=== PATIENT | male | born 1985 | race Caucasian/White ===

== ENCOUNTER 2019-09-24 14:14 | Inpatient (IN) | payer MEDICAID, SELFPAY ==
[2019-09-24 14:21] VITALS: BP 137/83; PULSE 70; RESP 20; TEMP 36.4; O2SAT 100; BMI 20.8
--- NOTE | 2019-09-24 14:31 | ED_ITS ---
Entered by [id number], acting as scribe for SanjanaSoheila HPI - Psych General: Chief Complaint: Psychiatric Symptoms Stated Complaint: mhe Time Seen by Provider: 09/24/19 14:31 [facility] ED PFSH: Statuses (acute, chronic, etc) shown below reflect problem list status as previously entered and may not be historically accurate Social History Smoking and tobacco status: current every day smoker MDM - Psych MDM Narrative: Medical decision making narrative: The patient was seen and evaluated with Troy Cheek APN. Please see his note for his history, physi krista exam and medical decision-making note. The case has been reviewed with Dr. Pabon and he was agreeable to admission. Lab Data: Labs: Lab Results 09/24/19 09/24/19 09/24/19 Range/Units 15:00 15:00 15:13 WBC 6.5 (4.0-10.0) 10^3/ uL RBC 5.50 H (4.1-5.3) 10^6/u L Hgb 15.1 (11.7-16.6) g/dL Hct 46.6 (42.0-52.0) % MCV 84.7 (80-94) fL MCH 27.5 L (28.0-34.0) pg MCHC 32.4 (30.0-36.0) g/dL RDW 12.2 (12.1-15.1) % Plt Count 265 (130-400) 10^3/c mm MPV 10.2 (7.4-10.4) fL Neut % (Auto) 61.2 % Lymph % (Auto) 27.5 % [place] % (Auto) 8.9 % Eos % (Auto) 1.5 % Baso % (Auto) 0.6 % Neut # (Auto) 4.0 (1.8-7.7) 10^3/u L Lymph # (Auto) 1.8 (0.8-4.8) 10^3/u L Nome # (Auto) 0.6 (0.2-0.9) 10^3/u L Eos # (Auto) 0.1 (0.0-0.8) 10^3/u L Baso # (Auto) 0.0 (0.0-0.1) 10^3/u L Nucleated RBC % (a uto) 0 % Nucleated RBCs # 0.0 /100WBC Sodium (136-145) mmol/L Potassium (3.5-5.1) mmol/L Chloride (98-107) mmol/L Carbon Dioxide (22-29) mmol/L Anion Gap (5-19) BUN (6-20) mg/dL Creatinine (0.7-1.2) mg/dL GFR Calculation (90-130) mL/min Glucose (74-109) mg/dL Calcium (8.6-10.0) mg/Dl Total Bilirubin (0.15-1.2) mg/dL AST (0-40) U/L ALT (0-41) U/L Alkaline Phosphata se (40-130) IU/L Total Protein (6.6-8.7) g/dL Albumin (3.5-5.2) g/dL Globulin (1.3-4.6) g/dL TSH (0.27-4.20) uIU/ mL Urine Color Yellow (Yellow) Urine Appearance Clear (CLEAR) Urine pH 7 (5-7) Ur Specific Gravit y 1.015 (1.005-1.030) Urine Protein Neg (Negative) Urine Glucose (UA) 4+ H (Normal) Urine Ketones Negative (Negative) Urine Occult Blood Neg (Negative) Urine Nitrate Negative (Negative) Urine Bilirubin Neg (NEGATIVE) Urine Urobilinogen Norm (Negative) mg/dL Ur Leukocyte Veronika ase Negative (Negative) Salicylates (3-10) mg/dL Urine Opiates Scre en Negative (Negative) ng/mL Acetaminophen (10-30) ug/mL Ur Barbiturates Sc reen Negative (Negative) ng/mL Ur Phencyclidine S crn Negative (Negative) ng/mL Ur Amphetamines Sc reen Positive H (Negative) ng/mL U Benzodiazepines Scrn Negative (Negative) ng/mL Urine Cocaine Scre en Negative (Negative) ng/mL U Marijuana (THC) Screen Negative (Negative) ng/mL Ethyl Alcohol (0-10) mg/dL 09/24/19 Range/Units 15:13 WBC (4.0-10.0) 10^3/ uL RBC (4.1-5.3) 10^6/u L Hgb (11.7-16.6) g/dL Hct (42.0-52.0) % MCV (80-94) fL MCH (28.0-34.0) pg MCHC (30.0-36.0) g/dL RDW (12.1-15.1) % Plt Count (130-400) 10^3/c mm MPV (7.4-10.4) fL Neut % (Auto) % Lymph % (Auto) % Nome % (Auto) % Eos % (Auto) % Baso % (Auto) % Neut # (Auto) (1.8-7.7) 10^3/u L Lymph # (Auto) (0.8-4.8) 10^3/u L N[place] # (Auto) (0.2-0.9) 10^3/u L Eos # (Auto) (0.0-0.8) 10^3/u L Baso # (Auto) (0.0-0.1) 10^3/u L Nucleated RBC % (a uto) % Nucleated RBCs # /100WBC Sodium 134 L (136-145) mmol/L Potassium 4.2 (3.5-5.1) mmol/L Chloride 92 L (98-107) mmol/L Carbon Dioxide 34 H (22-29) mmol/L Anion Gap 12.2 (5-19) BUN 11 (6-20) mg/dL Creatinine 0.7 (0.7-1.2) mg/dL GFR Calculation 127.6 (90-130) mL/min Glucose 308 H (74-109) mg/dL Calcium 10.0 (8.6-10.0) mg/Dl Total Bilirubin 0.4 (0.15-1.2) mg/dL AST 20 (0-40) U/L ALT 38 (0-41) U/L Alkaline Phosphata se 111 (40-130) IU/L Total Protein 7.3 (6.6-8.7) g/dL Albumin 4.5 (3.5-5.2) g/dL Globulin 2.8 (1.3-4.6) g/dL TSH 1.38 (0.27-4.20) uIU/ mL Urine Color (Yellow) Urine Appearance (CLEAR) Urine pH (5-7) Ur Specific Gravit y (1.005-1.030) Urine Protein (Negative) Urine Glucose (UA) (Normal) Urine Ketones (Negative) Urine Occult Blood (Negative) Urine Nitrate (Negative) Urine Bilirubin (NEGATIVE) Urine Urobilinogen (Negative) mg/dL Ur Leukocyte Veronika ase (Negative) Salicylates < 0.3 L (3-10) mg/dL Urine Opiates Scre en (Negative) ng/mL Acetaminophen < 5.0 L (10-30) ug/mL Ur Barbiturates Sc reen (Negative) ng/mL Ur Phencyclidine S crn (Negative) ng/mL Ur Amphetamines Sc reen (Negative) ng/mL U Benzodiazepines Scrn (Negative) ng/mL Urine Cocaine Scre en (Negative) ng/mL U Marijuana (THC) Screen (Negative) ng/mL Ethyl Alcohol < 10 (0-10) mg/dL Discharge Plan Discharge Patient Disposition: Admitted As Inpatient Clinical Impression: Depression with suicidal ideation Condition: Stable Coding Level of Care Code ED Precinct Police Sergeant for Acosta Allen The documentation recorded by the willow, [id number], accurately reflects the service I personally performed and the decisions made by Sanjana hill Eli N
--- NOTE | 2019-09-24 14:40 | W.ED.PSYCH ---
HPI - Psych General: Chief Complaint: Psychiatric Symptoms Stated Complaint: mhe Time Seen by Provider: 09/24/19 14:31 History of Present Illness: HPI Narrative: Patient was referred to the ER from [facility] in [place] for concerns of suicidal thoughts. Patient has a history of substance abuse with narcotics and methamphetamines. Patient reports that he has not used narcotics in 2 years and has been using Suboxone to control those cravings. Patient does occasionally use methamphetamines. Patient reports that he has recently gone through a divorce and which is caused him to become suicidal and have increasing thoughts of harming himself. Patient is requesting placement into the stress unit. Patient has history of Diabetes Mellitus type one, he takes Levemir 22 units in morning and sliding scale throughout the day MD complaint: suicidal ideation Associated symptoms: Reports depression and suicidal ideation If self harm: admits thoughts of self harm Review of Systems General: Reports: 10 or more systems reviewed and unremarkable except in HPI and below Psych: Reports: depression and suicidal ideation PFS ED PFSH: Statuses (acute, chronic, etc) shown below reflect problem list status as previously entered and may not be historically accurate Social History Smoking and tobacco status: current every day smoker Physical Exam Const: COMMON NORMALS: no apparent distress and oriented x3 GENERAL APPEARANCE: cooperative HENMT: COMMON NORMALS: normocephalic, external ears normal, EAC's normal, TM's normal bilaterally and external nose normal HEAD & SCALP: normal to inspection and normocephalic FACE & SINUS: normal facial exam NOSE: external nose normal GENERAL EAR: hearing not grossly impaired EXTERNAL EAR: Yes external ears normal EXTERNAL AUDITORY CANAL: EAC's normal TYMPANIC MEMBRANE: TM's normal bilaterally MOUTH: oral and palatal mucosa normal THROAT: posterior oropharynx normal Eye: COMMON NORMALS: PERRL and EOMs intact bilaterally PUPIL: Yes PERRL Neck/C-Spine: COMMON NORMALS: full ROM and no lymphadenopathy Lymph: LYMPHATIC: no lymphedema noted Chest: COMMONS NORMALS: inspection of chest normal and palpation of chest normal Resp: COMMON NORMALS: normal respiratory effort and clear to auscultation bilaterally AUSCULTATION: clear to auscultation bilaterally Cardio: COMMON NORMALS: regular rate and regular rhythm RATE: regular rate RHYTHM: regular rhythm GI: COMMON NORMALS: normal to inspection, nondistended, normoactive bowel sounds and non-tender : COMMON NORMALS: Yes no CVA tenderness BLADDER/KIDNEY EXAM: Yes no CVA tenderness Back/Pelvis: COMMON NORMALS: no CVA tenderness and thoracic and lumbar spine normal to inspection Extremity: COMMON NORMALS: normal to inspection GENERAL: No edema Neuro: COMMON NORMALS: oriented x3, moves all extremities and no focal motor deficits Psych: COMMON NORMALS: mental status grossly normal and cooperative Skin: COMMON NORMALS: no rashes or lesions noted GENERAL SKIN EXAM: no rashes or lesions noted MDM - Psych MDM Narrative: Medical decision making narrative: Patient comes in today for complaints of suicidal thoughts. Patient has been increasing depression due to recent divorce and history of depression. Patient also has a history of substance abuse with narcotics and methamphetamines. Exam is normal. No signs of self-harm is noted. Patient is cooperative. Differential diagnosis includes depression, suicidal ideation, substance abuse. Laboratory values noted a blood sugar of 308. Remainder of labs were unremarkable except for a positive amphetamines on urine drug screen. Reviewed exam with Dr. Mcnamara who recommended consult with Dr. Pabon psychiatrist for admission to the hospital. Patient was agreeable for admission. Dr. Mcnamara was contacted and agreed to admission to NPU. Patient requires admission for protection of self with close monitoring. Patient needs assistance with professor of social work and referral for outpatient treatment. Lab Data: Labs: Lab Results 09/24/19 09/24/19 09/24/19 Range/Units 15:00 15:00 15:13 WBC 6.5 (4.0-10.0) 10^3/ uL RBC 5.50 H (4.1-5.3) 10^6/u L Hgb 15.1 (11.7-16.6) g/dL Hct 46.6 (42.0-52.0) % MCV 84.7 (80-94) fL MCH 27.5 L (28.0-34.0) pg MCHC 32.4 (30.0-36.0) g/dL RDW 12.2 (12.1-15.1) % Plt Count 265 (130-400) 10^3/c mm MPV 10.2 (7.4-10.4) fL Neut % (Auto) 61.2 % Lymph % (Auto) 27.5 % Keith % (Auto) 8.9 % Eos % (Auto) 1.5 % Baso % (Auto) 0.6 % Neut # (Auto) 4.0 (1.8-7.7) 10^3/u L Lymph # (Auto) 1.8 (0.8-4.8) 10^3/u L Keith # (Auto) 0.6 (0.2-0.9) 10^3/u L Eos # (Auto) 0.1 (0.0-0.8) 10^3/u L Baso # (Auto) 0.0 (0.0-0.1) 10^3/u L Nucleated RBC % (a uto) 0 % Nucleated RBCs # 0.0 /100WBC Sodium (136-145) mmol/L Potassium (3.5-5.1) mmol/L Chloride (98-107) mmol/L Carbon Dioxide (22-29) mmol/L Anion Gap (5-19) BUN (6-20) mg/dL Creatinine (0.7-1.2) mg/dL GFR Calculation (90-130) mL/min Glucose (74-109) mg/dL Calcium (8.6-10.0) mg/Dl Total Bilirubin (0.15-1.2) mg/dL AST (0-40) U/L ALT (0-41) U/L Alkaline Phosphata se (40-130) IU/L Total Protein (6.6-8.7) g/dL Albumin (3.5-5.2) g/dL Globulin (1.3-4.6) g/dL TSH (0.27-4.20) uIU/ mL Urine Color Yellow (Yellow) Urine Appearance Clear (CLEAR) Urine pH 7 (5-7) Ur Specific Gravit y 1.015 (1.005-1.030) Urine Protein Neg (Negative) Urine Glucose (UA) 4+ H (Normal) Urine Ketones Negative (Negative) Urine Occult Blood Neg (Negative) Urine Nitrate Negative (Negative) Urine Bilirubin Neg (NEGATIVE) Urine Urobilinogen Norm (Negative) mg/dL Ur Leukocyte Veronika ase Negative (Negative) Salicylates (3-10) mg/dL Urine Opiates Scre en Negative (Negative) ng/mL Acetaminophen (10-30) ug/mL Ur Barbiturates Sc reen Negative (Negative) ng/mL Ur Phencyclidine S crn Negative (Negative) ng/mL Ur Amphetamines Sc reen Positive H (Negative) ng/mL U Benzodiazepines Scrn Negative (Negative) ng/mL Urine Cocaine Scre en Negative (Negative) ng/mL U Marijuana (THC) Screen Negative (Negative) ng/mL Ethyl Alcohol (0-10) mg/dL 09/24/19 Range/Units 15:13 WBC (4.0-10.0) 10^3/ uL RBC (4.1-5.3) 10^6/u L Hgb (11.7-16.6) g/dL Hct (42.0-52.0) % MCV (80-94) fL MCH (28.0-34.0) pg MCHC (30.0-36.0) g/dL RDW (12.1-15.1) % Plt Count (130-400) 10^3/c mm MPV (7.4-10.4) fL Neut % (Auto) % Lymph % (Auto) % Keith % (Auto) % Eos % (Auto) % Baso % (Auto) % Neut # (Auto) (1.8-7.7) 10^3/u L Lymph # (Auto) (0.8-4.8) 10^3/u L Keith # (Auto) (0.2-0.9) 10^3/u L Eos # (Auto) (0.0-0.8) 10^3/u L Baso # (Auto) (0.0-0.1) 10^3/u L Nucleated RBC % (a uto) % Nucleated RBCs # /100WBC Sodium 134 L (136-145) mmol/L Potassium 4.2 (3.5-5.1) mmol/L Chloride 92 L (98-107) mmol/L Carbon Dioxide 34 H (22-29) mmol/L Anion Gap 12.2 (5-19) BUN 11 (6-20) mg/dL Creatinine 0.7 (0.7-1.2) mg/dL GFR Calculation 127.6 (90-130) mL/min Glucose 308 H (74-109) mg/dL Calcium 10.0 (8.6-10.0) mg/Dl Total Bilirubin 0.4 (0.15-1.2) mg/dL AST 20 (0-40) U/L ALT 38 (0-41) U/L Alkaline Phosphata se 111 (40-130) IU/L Total Protein 7.3 (6.6-8.7) g/dL Albumin 4.5 (3.5-5.2) g/dL Globulin 2.8 (1.3-4.6) g/dL TSH 1.38 (0.27-4.20) uIU/ mL Urine Color (Yellow) Urine Appearance (CLEAR) Urine pH (5-7) Ur Specific Gravit y (1.005-1.030) Urine Protein (Negative) Urine Glucose (UA) (Normal) Urine Ketones (Negative) Urine Occult Blood (Negative) Urine Nitrate (Negative) Urine Bilirubin (NEGATIVE) Urine Urobilinogen (Negative) mg/dL Ur Leukocyte Veronika ase (Negative) Salicylates < 0.3 L (3-10) mg/dL Urine Opiates Scre en (Negative) ng/mL Acetaminophen < 5.0 L (10-30) ug/mL Ur Barbiturates Sc reen (Negative) ng/mL Ur Phencyclidine S crn (Negative) ng/mL Ur Amphetamines Sc reen (Negative) ng/mL U Benzodiazepines Scrn (Negative) ng/mL Urine Cocaine Scre en (Negative) ng/mL U Marijuana (THC) Screen (Negative) ng/mL Ethyl Alcohol < 10 (0-10) mg/dL EKG Data^: EKG 1: Attestation: I personally reviewed and interpreted this EKG as follows: (1450, regular rate and rhythm, 60 bpm, Short JACK, Normal QRS, No ST elevation, wjw) Discharge Plan Discharge Patient Disposition: Admitted As Inpatient Clinical Impression: Depression with suicidal ideation Condition: Stable Coding Level of Care Code ED Budget And Policy Analyst for Veeg Fwd Exam Problem Focused
--- NOTE | 2019-09-24 14:43 | ECG_ITS ---
Measurements Intervals [place] Rate: 60 P: 78 HI: 118 QRS: 89 QRSD: 90 T: 80 QT: 395 QTc: 397 SINUS RHYTHM WITH SHORT HI INTERVAL No previous ECG available for comparison Electronically Signed On 09-24-2019 19:02:34 SEAMSTRESS FITTER by Susy Gonzales M.D. [email or web address]
[2019-09-24 15:19] LABS: Add Urine Microscopic? NO
[2019-09-24 15:19] LABS: Basophils % 0.6 %; Eosinophils # 0.1 10^3/uL (0.0-0.8); Eosinophils % 1.5 %; Hematocrit 46.6 % (42.0-52.0); Hemoglobin 15.1 g/dL (11.7-16.6); Lymphocytes # 1.8 10^3/uL (0.8-4.8); Lymphocytes % 27.5 %; Mean Corpuscular HGB Conc 32.4 g/dL (30.0-36.0); Mean Corpuscular Hemoglobin 27.5 pg (28.0-34.0); Mean Corpuscular Volume 84.7 fL (80-94); Mean Platelet Volume 10.2 fL (7.4-10.4); Monocytes # 0.6 10^3/uL (0.2-0.9); Monocytes % 8.9 %; Neutrophils % 61.2 %; Nucleated Red Blood Cells % 0 %; Platelet Count 265 10^3/cmm (130-400); Red Cell Distribution Width 12.2 % (12.1-15.1); White Blood Count 6.5 10^3/uL (4.0-10.0)
[2019-09-24 15:24] LABS: Specific Gravity, Urine 1.015 (1.005-1.030); Urine Appearance Clear (CLEAR); Urine Color Yellow (Yellow); pH Urine 7 (5-7)
[2019-09-24 15:25] LABS: Bilirubin Urine Neg (NEGATIVE); Blood Urine Neg (Negative); Glucose Urine UA 4+ (Normal); Ketones Urine Negative (Negative); Leukocyte Esterase Urine Negative (Negative); Nitrate Urine Negative (Negative); Protein Urine Neg (Negative); Urobilinogen Urine Norm (Negative)
[2019-09-24 15:37] LABS: Barbiturates Screen Urine Negative (Negative); Benzodiazepines Screen Urine Negative (Negative); Cocaine Screen Urine Negative (Negative); Opiate Screen Urine Negative (Negative); PCP Screen Urine Negative (Negative); THC Screen Urine Negative (Negative)
[2019-09-24 15:43] LABS: Amphetamines Screen Urine Positive (Negative)
[2019-09-24 15:44] LABS: Alanine Aminotransferase 38 U/L (0-41); Albumin Level 4.5 g/dL (3.5-5.2); Alkaline Phosphatase 111 IU/L (40-130); Anion Gap 12.2 (5-19); Aspartate Amino Transferase 20 U/L (0-40); Blood Urea Nitrogen 11 mg/dL (6-20); Carbon Dioxide 34 mmol/L (22-29); Chloride 92 mmol/L (98-107); Globulin 2.8 g/dL (1.3-4.6); Glomerular Filtration Rate 127.6 mL/min (90-130); Glucose 308 mg/dL (74-109); Potassium 4.2 mmol/L (3.5-5.1); Sodium 134 mmol/L (136-145); Thyroid Stimulating Hormone 1.38 uIU/mL (0.27-4.20); Total Bilirubin 0.4 mg/dL (0.15-1.2); Total Protein 7.3 g/dL (6.6-8.7)
[2019-09-24 15:45] LABS: Acetaminophen < 5.0 ug/mL (10-30); Alcohol Level < 10 mg/dL (0-10); Salicylate < 0.3 mg/dL (3-10)
[2019-09-24 17:06] VITALS: BP 137/79; PULSE 79; RESP 16; O2SAT 99
[2019-09-24 17:40] VITALS: BP 116/80; PULSE 76; RESP 17; TEMP 36.5; O2SAT 100
[2019-09-24 19:07] LABS: Glucose Point of Care 381 mg/dL (70-110)
--- NOTE | 2019-09-24 20:15 | PC.NURSE ---
PT BS WAS 308 IN THE ER PRIOR TO ADMISSION ON THE NPU. NO INSULIN COVERAGE WAS GIVEN. DR NIGEL QUEVEDO AWARE.
--- NOTE | 2019-09-24 20:15 | PC.NURSE ---
PATIENTS BS WAS RECHECKED AT 1830 AND WAS 381. DATA ANALYTICS CHIEF SCIENTIST CONTACTED DR QUEVEDO AND HE VOICED TO LOOK AT PT HOME MEDICATION LIST AND CONTACT HIM. AT 1945 PATIENT'S MEDICATIONS WERE RECONCILED AND TO START TONIGHT.JOINER TO FOLLOW UP.
[2019-09-24 20:25] LABS: Glucose Point of Care 398 mg/dL (70-110)
[2019-09-24 20:42] VITALS: BP 125/83; PULSE 64; RESP 15; TEMP 36.5; O2SAT 99
[2019-09-24] MEDS: tamsulosin 0.4 mg Capsule PO (22:32)
[2019-09-25 00:41] LABS: Glucose Point of Care 294 mg/dL (70-110)
[2019-09-25 06:00] VITALS: BP 107/69; PULSE 88; RESP 20; TEMP 36.9; O2SAT 98
[2019-09-25 06:34] LABS: Glucose Point of Care 147 mg/dL (70-110)
[2019-09-25 10:03] LABS: Glucose Point of Care 333 mg/dL (70-110)
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
[2019-09-25 11:53] LABS: Glucose Point of Care 317 mg/dL (70-110)
[2019-09-25 13:30] LABS: Glucose Point of Care 301 mg/dL (70-110)
--- NOTE | 2019-09-25 13:39 | PC.NURSE ---
PT NOTE: PT REFUSED SCHEDULED SLIDING SCALE LUNCHTIME INSULIN.
[2019-09-25 14:00] VITALS: BP 104/72; PULSE 78; RESP 21; TEMP 36.7; O2SAT 98
[2019-09-25 15:15] LABS: Glucose Point of Care 164 mg/dL (70-110)
[2019-09-25 16:45] LABS: Glucose Point of Care 93 mg/dL (70-110)
[2019-09-25] MEDS: buprenorphine-naloxone 4-1 mg Film 2 EACH SUBLINGUAL ×2 (16:45→21:55)
[2019-09-25 19:45] LABS: Glucose Point of Care 194 mg/dL (70-110)
[2019-09-25 19:48] VITALS: BP 112/82; PULSE 95; RESP 18; TEMP 36.6; O2SAT 100
[2019-09-25] MEDS: tamsulosin 0.4 mg Capsule PO (21:55)
[2019-09-26 06:00] VITALS: BP 104/70; PULSE 65; RESP 18; TEMP 36.6; O2SAT 96
[2019-09-26 06:41] LABS: Glucose Point of Care 188 mg/dL (70-110)
[2019-09-26] MEDS: buprenorphine-naloxone 4-1 mg Film 2 EACH SUBLINGUAL ×3 (09:09→21:19)
[2019-09-26 11:52] LABS: Glucose Point of Care 235 mg/dL (70-110)
[2019-09-26 13:48] VITALS: BP 97/61; PULSE 74; RESP 16; TEMP 36.8; O2SAT 97
--- NOTE | 2019-09-26 14:24 | PM.NPN ---
Subjective NPU Subjective: Interval history: Arash presents today reporting that he still feeling pretty depressed. He continues to struggle with the decision made by the courts and trying to figure out with the rest of his life is going to look like. He had his first dose of Prozac and denies any negative symptoms thus far has only been since earlier today. He reports that he is open to aftercare after he leaves here but also continues to struggle with purpose to go on given the abrupt change in his life and his nuclear family. Mental Status Exam MSE Comments: This is a well-nourished well-developed white male with adequate dress grooming and eye contact. No abnormal movements except for psychomotor retardation. Cooperative with exam in mild distress. Speech was decreased rate and volume. Mood described as depressed, affect and tearful. Thought process organized. Thought content: Patient denied active suicidal or homicidal ideation but did endorse some passive wish. There were no delusions reported noted, he denied any auditory or visual hallucinations. Attention and concentration were intact and memory was reliable but weren't formally tested. He is alert and oriented ?3. Insight and judgment are fair. Vitals/I&O/Wt Last Vital Signs Temp 98.2 F 09/26/19 13:48 Pulse 74 09/26/19 13:48 Resp 16 09/26/19 13:48 BP 97/61 09/26/19 13:48 Pulse Ox 97 09/26/19 13:48 A&P Additional A&P Information Additional A&P Information: This is a 34-year-old white male with a long history of trauma and mood issues who presents with stalin depression and suicidal ideation against the backdrop of a recent divorce and alienation from his children. 1. Continue current medications. 2. Encourage individual group and milieu therapy. 3. Continue every 15 minute checks for safety. 4. Explore getting connected to a sober living facility at the highest level of care to which he is willing to commit. Involuntary Hold Information 96 Hour Hold: 96 Hour Involuntary Admission: No Attestations NPU Medical Necessity Statement*: Inpatient hospitalization is medically necessary and the clinically appropriate intervention at this time. We will continue to initiate and monitor medications and titrated to effect. Likely length of stay 2-4 days. Coding Level of Care Code Acute Char Conveyor Tender Cellar for Acosta Allen
[2019-09-26] MEDS: fluoxetine 20 mg Capsule PO (14:39)
[2019-09-26 16:47] LABS: Glucose Point of Care 354 mg/dL (70-110)
--- NOTE | 2019-09-26 16:51 | PC.NURSE ---
DR QUEVEDO AWARE OF PATIENTS BS OF 354.
[2019-09-26 19:41] VITALS: BP 114/71; PULSE 74; RESP 19; TEMP 36.7; O2SAT 97
[2019-09-26 20:07] LABS: Glucose Point of Care 168 mg/dL (70-110)
[2019-09-26] MEDS: tamsulosin 0.4 mg Capsule PO (21:19)
[2019-09-27 06:00] VITALS: BP 120/74; PULSE 74; RESP 19; TEMP 36.6; O2SAT 98
[2019-09-27 06:38] LABS: Glucose Point of Care 51 mg/dL (70-110)
--- NOTE | 2019-09-27 06:41 | PC.NURSE ---
patient blood sugar is 51mg/dl . orange juice and peanut butter given. patient is awake and alert. denies any signs/symptoms of hypoglycemia. will pass on in report at shift change.
[2019-09-27] MEDS: buprenorphine-naloxone 4-1 mg Film 2 EACH SUBLINGUAL ×3 (08:29→20:16)
[2019-09-27] MEDS: fluoxetine 20 mg Capsule PO (08:29)
[2019-09-27 11:15] LABS: Glucose Point of Care 307 mg/dL (70-110)
--- NOTE | 2019-09-27 11:32 | PC.NURSE ---
REFUSED SCHEDULED NOVOLOG FOR 1200, BLOOD SUGAR 307, PT EDUCATED BY MED NURSE HE WOULD GET 5 UNITS OF INSULIN PER SLIDING SCALE. PT STATED NO WAY, I'M NOT TAKING THAT, THAT WILL BOTTOM ME OUT, I'M USED TO MY SUGARS RUNNING JUST A LITTLE HIGH.
[2019-09-27 14:00] VITALS: BP 120/74; RESP 19; TEMP 36.6; O2SAT 98
[2019-09-27 14:13] LABS: Glucose Point of Care 498 mg/dL (70-110)
--- NOTE | 2019-09-27 14:28 | P.PN_ITS ---
Subjective NPU Subjective: Interval history: Arash presents today reporting that he is pretty tired. He does not surface the medication or exhaustion from the recent stress and challenges in his life. He denies any specific side effect thus far to the medication. He still feels fairly depressed, although reports he is eating okay. Mental Status Exam MSE Comments: This is a well-nourished well-developed white male with adequate dress grooming and eye contact. No abnormal movements except for psychomotor retardation. Cooperative with exam in mild distress. Speech was decreased rate and volume. Mood described as depressed, affect congruent. Thought process organized. Thought content: Patient denied active suicidal or homicidal ideation but did endorse some passive wish. There were no delusions reported noted, he denied any auditory or visual hallucinations. Attention and concentration were intact and memory was reliable but none were formally tested. He is alert and oriented ?3. Insight and judgment are fair. Vitals/I&O/Wt Last Vital Signs Temp 97.9 F 09/27/19 06:00 Pulse 74 09/27/19 06:00 Resp 19 H 09/27/19 06:00 BP 120/74 09/27/19 06:00 Pulse Ox 98 09/27/19 06:00 Weight last 48 hrs Weight 63.52 kg A&P Additional A&P Information Additional A&P Information: This is a 34-year-old white male with a long history of trauma and mood issues who presents with stalin depression and suicidal ideation against the backdrop of a recent divorce and alienation from his children. 1. Continue current medications. 2. Encourage individual group and milieu therapy. 3. Continue every 15 minute checks for safety. 4. Explore getting connected to a sober living facility at the highest level of care to which he is willing to commit. Involuntary Hold Information 96 Hour Hold: 96 Hour Involuntary Admission: No Attestations NPU Medical Necessity Statement*: Inpatient hospitalization is medically necessary and the clinically appropriate intervention at this time. We will continue to initiate and monitor medications and titrated to effect. Likely length of stay 2-4 days. Coding Level of Care Code Acute Branch Service Representative for Acosta Allen
[2019-09-27 14:50] VITALS: BP 119/72; PULSE 67; RESP 20; TEMP 36.7; O2SAT 100
[2019-09-27 17:05] LABS: Glucose Point of Care 428 mg/dL (70-110)
[2019-09-27 20:06] VITALS: BP 108/68; PULSE 85; RESP 15; TEMP 36.8; O2SAT 96
[2019-09-27] MEDS: tamsulosin 0.4 mg Capsule PO (20:16)
[2019-09-27 20:53] LABS: Glucose Point of Care 226 mg/dL (70-110)
[2019-09-28 06:00] VITALS: BP 124/74; PULSE 66; RESP 20; TEMP 36.6; O2SAT 97
[2019-09-28 06:24] LABS: Glucose Point of Care 194 mg/dL (70-110)
[2019-09-28] MEDS: fluoxetine 20 mg Capsule PO (08:49)
[2019-09-28] MEDS: buprenorphine-naloxone 4-1 mg Film 2 EACH SUBLINGUAL ×2 (08:49→14:03)
--- NOTE | 2019-09-28 11:25 | PM.NPN ---
Subjective NPU Subjective: Interval history: Arash presents today continuing to be quite desponded about his situation. Still struggling to see the light as to what his next move can or should be. He has been trying to be thoughtful he reports but much of what he is mustering is. He is wanting to sleep and not believe that this is where things have actually fallen to him. He reports that he sleeping too much and eating okay. Mental Status Exam MSE Comments: This is a well-nourished well-developed white male with adequate dress grooming and eye contact. No abnormal movements except for psychomotor retardation. Cooperative with exam in mild distress. Speech was decreased rate and volume. Mood described as depressed, affect congruent. Thought process organized. Thought content: Patient denied active suicidal or homicidal ideation but did endorse some passive wish. There were no delusions reported noted, he denied any auditory or visual hallucinations. Attention and concentration were intact and memory was reliable but none were formally tested. He is alert and oriented ?3. Insight and judgment are fair. Vitals/I&O/Wt Last Vital Signs Temp 97.9 F 09/28/19 06:00 Pulse 66 09/28/19 06:00 Resp 20 H 09/28/19 06:00 BP 124/74 09/28/19 06:00 Pulse Ox 97 09/28/19 06:00 Weight last 48 hrs Weight 63.52 kg A&P Additional A&P Information Additional A&P Information: This is a 34-year-old white male with a long history of trauma and mood issues who presents with stalin depression and suicidal ideation against the backdrop of a recent divorce and alienation from his children. 1. Continue current medications. 2. Encourage individual group and milieu therapy. 3. Continue every 15 minute checks for safety. 4. Explore getting connected to a sober living facility at the highest level of care to which he is willing to commit. Involuntary Hold Information 96 Hour Hold: 96 Hour Involuntary Admission: No Attestations NPU Medical Necessity Statement*: Inpatient hospitalization is medically necessary and the clinically appropriate intervention at this time. We will continue to initiate and monitor medications and titrated to effect. Likely length of stay 2-4 days. Coding Level of Care Code Acute Water Pump Installer for Acosta Allen
[2019-09-28 11:40] LABS: Glucose Point of Care 308 mg/dL (70-110)
[2019-09-28 14:00] VITALS: BP 120/72; PULSE 91; RESP 18; TEMP 36.6; O2SAT 98
[2019-09-28 16:24] LABS: Glucose Point of Care 145 mg/dL (70-110)
[2019-09-28 19:56] LABS: Glucose Point of Care 224 mg/dL (70-110)
[2019-09-28 20:06] VITALS: BP 103/65; PULSE 73; RESP 16; TEMP 36.6; O2SAT 98
[2019-09-28] MEDS: tamsulosin 0.4 mg Capsule PO (23:08)
[2019-09-29 06:00] VITALS: BP 115/75; PULSE 68; RESP 16; TEMP 36.6; O2SAT 100
[2019-09-29 06:31] LABS: Glucose Point of Care 52 mg/dL (70-110)
--- NOTE | 2019-09-29 07:54 | PC.NURSE ---
SUGAR COATING HAND REPORTED PATIENT'S BS WAS 52 THIS AM. RECHECKED BS @0730 AND WAS 79. PT ATE BREAKFAST. NO S/S OF HPO/HYPERGLYCEMIA.
[2019-09-29] MEDS: buprenorphine-naloxone 4-1 mg Film 2 EACH SUBLINGUAL ×2 (08:14→20:55)
[2019-09-29] MEDS: fluoxetine 20 mg Capsule PO (08:14)
[2019-09-29 09:57] LABS: Glucose Point of Care 79 mg/dL (70-110)
--- NOTE | 2019-09-29 11:27 | P.PN_ITS ---
Subjective NPU Subjective: Interval history: Arash presents today a little more interactive and continuing to be introspective about the circumstances he finds himself in. He reports that he feels like the medication is causing him to think about things a lot more. But then later we were able to talk about the fact that he is having constructive thinking about restating his life and that maybe the medication is giving him the strength or the mindset to be able to think about things he has not wanted to think about or except prior to now. He reports that he has been talking the family and trying to orchestrate his next steps. We discussed the possibility of discharge in the next 48 hours if he continues to have improvement and be able to contract for safety. Mental Status Exam MSE Comments: This is a well-nourished well-developed white male with adequate dress grooming and eye contact. No abnormal movements except for lessening psychomotor retardation. Cooperative with exam in no acute distress. Speech was decreased rate and volume, but improving. Mood described as a little better, affect congruent. Thought process organized. Thought content: Patient denied suicidal or homicidal ideations and reported not thinking much about dying. There were no delusions reported noted, he denied any auditory or visual hallucinations. Attention and concentration were intact and memory was reliable but none were formally tested. He is alert and oriented ?3. Insight and judgment are fair. Vitals/I&O/Wt Last Vital Signs Temp 98.3 F 09/29/19 20:41 Pulse 72 09/29/19 20:41 Resp 18 09/29/19 20:41 BP 118/82 09/29/19 20:41 Pulse Ox 99 09/29/19 20:41 A&P Additional A&P Information This is a 34-year-old white male with a long history of trauma and mood issues who presents with stalin depression and suicidal ideation against the backdrop of a recent divorce and alienation from his children. 1. Continue current medications. 2. Encourage individual group and milieu therapy. 3. Continue every 15 minute checks for safety. 4. Explore getting connected to a sober living facility at the highest level of care to which he is willing to commit. Involuntary Hold Information 96 Hour Hold: 96 Hour Involuntary Admission: No Attestations NPU Medical Necessity Statement*: Inpatient hospitalization is medically necessary and the clinically appropriate intervention at this time. We will continue to initiate and monitor medications and titrated to effect. Tentative discharge tomorrow. Likely length of stay 1-2 days. Coding Level of Care Code Acute Reproduction Order Processor for Acosta Allen
[2019-09-29 11:35] LABS: Glucose Point of Care 204 mg/dL (70-110)
[2019-09-29 13:59] VITALS: BP 120/80; PULSE 67; RESP 20; TEMP 36.9; O2SAT 99
[2019-09-29 16:52] LABS: Glucose Point of Care 275 mg/dL (70-110)
[2019-09-29 20:41] VITALS: BP 118/82; PULSE 72; RESP 18; TEMP 36.8; O2SAT 99
[2019-09-29] MEDS: tamsulosin 0.4 mg Capsule PO (20:54)
[2019-09-29 21:08] LABS: Glucose Point of Care 308 mg/dL (70-110)
[2019-09-30 06:00] VITALS: BP 124/88; PULSE 79; RESP 18; TEMP 36.9; O2SAT 97
[2019-09-30 06:31] LABS: Glucose Point of Care 208 mg/dL (70-110)
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
[2019-09-30] MEDS: fluoxetine 20 mg Capsule PO (09:00)
[2019-09-30] MEDS: buprenorphine-naloxone 4-1 mg Film 2 EACH SUBLINGUAL ×2 (09:00→15:02)
[2019-09-30 11:54] LABS: Glucose Point of Care 256 mg/dL (70-110)
[2019-09-30 14:00] VITALS: BP 126/83; PULSE 82; RESP 18; O2SAT 97
[2019-09-30 14:25] LABS: Glucose Point of Care 307 mg/dL (70-110)
[2019-09-30 15:20] VITALS: BP 126/83; PULSE 82; RESP 18; O2SAT 97
--- NOTE | 2019-09-30 15:59 | PC.SOCIAL ---
plans changed. patient decided to not go to [facility]. So [facility] in [facility] was called to make sure he has his follow-up appointment scheduled. He plans to go home now and he does want a medicaid ride. He wants the ride to [phone] [place]. Patient also has a individual therapist. An appointment was called. His point of care technician. plans to call him tomorrow to check on him. Discharge Information to be faxed to [phone]. Myrna is his point of care technician. Patient is good with that. Per patient's request, [facility] knows he is not coming now. Hallie took the call at [phone].
--- NOTE | 2019-09-30 16:21 | PC.SOCIAL ---
trip#[id number] for medicaid ride
[2019-09-30 16:45] LABS: Glucose Point of Care 312 mg/dL (70-110)
== END 2019-09-30 18:31 | disposition home or self-care (01) | DRG 881 ==
LOC: ER 16:55 → NP 17:09
PROVIDERS: Nurse Practitioner Family; Admitting Provider Psychiatry & Neurology Psychiatry; Emergency Provider Emergency Medicine; Visit Provider Psychiatry & Neurology Psychiatry
DX: F32.9 Major depressive disorder, single episode, unspecified (principal); R45.851 Suicidal ideations; F17.210 Nicotine dependence, cigarettes, uncomplicated
CPT/HCPCS: 12345; 36415; 36416; 80053; 80307; 81003; 82962; 84443; 85025; 93005; 96372; 99284; A9270; J0573; J1815

== ENCOUNTER 2019-09-24 14:14 | Emergency (ER) | payer MEDICAID, SELFPAY | END 2019-09-24 17:26 | disposition admitted as inpatient to this hospital (09) | LOC: ER 10-30 10:23 | PROVIDERS: Emergency Provider Emergency Medicine | DX: F32.9 Major depressive disorder, single episode, unspecified (principal); R45.851 Suicidal ideations; F17.210 Nicotine dependence, cigarettes, uncomplicated | CPT/HCPCS: 36415; 80053; 80307; 81003; 84443; 85025; 93005; 99284; 99285 ==

== ENCOUNTER 2021-03-18 14:06 | Emergency (ER) | payer MEDICAID, SELFPAY ==
[2021-03-18 14:27] VITALS: BP 147/100; PULSE 102; RESP 16; TEMP 36.9; O2SAT 96; BMI 26.6
--- NOTE | 2021-03-18 14:44 | W.ED.EXTPRO ---
HPI - Extremity Problem General: Chief complaint: Extremity Injury, Lower Stated complaint: TOE LAC Time Seen by Provider: 03/18/21 14:36 History of Present Illness: HPI Narrative: Patient is a 35-year-old male comes to the ED with laceration to his left great toe. Patient states he was playing volleyball in the mud and he slid. He thinks when he slid a rock cut his left great toe. Denies any other injuries. Patient is up-to-date on his tetanus. Denies any other injury or other symptoms. Associated symptoms: Deny chest pain, fever(s) or rash Review of Systems Const: Denies: fever(s), chills or fatigue Eyes: Denies: change in vision or eye discomfort ENMT: Denies: throat pain, odynophagia, nasal discharge or nasal congestion Card: Denies: chest pain, palpitations, edema, swelling of feet/ankles, dyspnea on exertion or orthopnea Resp: Denies: dyspnea, productive cough or non-productive cough GI: Denies: abdominal pain, nausea, vomiting, diarrhea, constipation or hematochezia : Denies: flank pain, difficulty urinating, dysuria or hematuria Musc: Denies: neck pain, back pain or extremity swelling Skin/Breast: Reports: new lesions (left great toe lac); Denies: rash Neuro: Denies: headache(s), numbness in extremities or weakness in extremities PFSH ED PFSH: Social History Smoking and tobacco status: current every day smoker Physical Exam Const: COMMON NORMALS: no acute distress, patient oriented x3, healthy appearing and alert GENERAL APPEARANCE: cooperative and comfortable HENMT: COMMON NORMALS: normocephalic HEAD & SCALP: normocephalic MOUTH: Normal oral and palatal mucosa present THROAT: posterior oropharynx normal and uvula midline Neck/C-Spine: COMMON NORMALS: supple GENERAL: Yes normal visual inspection Resp: COMMON NORMALS: normal respiratory effort, No retractions, No use of accessory muscles and clear to auscultation bilaterally AUSCULTATION: clear to auscultation bilaterally Cardio: COMMON NORMALS: regular rate, regular rhythm, S1 normal heart sound present, S2 normal heart sound present, No gallops present (Cardio), No clicks present (Cardio), No murmurs present (Cardio) and Peripheral pulses 2+ throughout RATE: regular rate RHYTHM: regular rhythm HEART SOUNDS: S1 normal heart sound present and S2 normal heart sound present PERIPHERAL PULSES: Peripheral pulses 2+ throughout GI: COMMON NORMALS: Normal to inspection, nondistended, normoactive bowel sounds present, Soft to palpation, non-tender and no masses PALPATION: Yes Soft to palpation : COMMON NORMALS: Yes no CVA tenderness BLADDER/KIDNEY EXAM: Yes no CVA tenderness Back/Pelvis: COMMON NORMALS: no CVA tenderness Extremity: NARRATIVE EXTREMITY EXAM: Patient has a superficial 2.5 cm flap shaped laceration to left great toe. No active bleeding. GENERAL: Yes normal exam except as noted Neuro: COMMON NORMALS: patient oriented x3 and moves all extremities SENSORIUM/ORIENTATION: Yes alert Skin: NARRATIVE SKIN EXAM: Patient has a superficial 2.5 cm flap shaped laceration to left great toe. No active bleeding. GENERAL SKIN EXAM: dry skin Procedures Laceration Laceration 1: Site: lower extremity (great toe ) Side (If applicable): left Size (cm): 2.5 Description: linear and clean Depth: simple, single layer Local Anesthetic: lidocaine 1% Amount of anesthesia used (mL): 10 Pre-repair: irrigated extensively (Normal saline and iodine wash. Skin cleaned with CHG swab.) Skin layer closed with: nylon Size (cm): 4-0 Number of sutures: 9 Technique: simple, interrupted Course Vital Signs: Vital signs: Vital Signs Temperature 98.4 F 03/18/21 14:27 Pulse Rate 81 03/18/21 16:32 Respiratory Rate 18 03/18/21 16:32 Blood Pressure 147/100 03/18/21 14:27 Pulse Oximetry 96 03/18/21 16:32 MDM - Extremity (Nontraumatic) MDM Narrative: Medical decision making narrative: Patient is a 35-year-old male comes to the ED with laceration to left great toe. Patient was playing volleyball in the mud and slid cutting his toe on a rock. Laceration was irrigated extensively with normal saline and iodine wash. The skin was cleaned with CHG swab. Local lidocaine 1% was used and 9 sutures were placed to close up laceration. Patient was put on a prescription for cephalexin as prophylactic treatment for infection. He was given crutches and told to limit any weightbearing on left foot for the next 2 days to allow for the better healing. Return to ED, urgent care or PCP in about 7 to 10 days to have sutures removed. Return to ED precautions given. Patient understood agree with plan. Lab Data: Labs: Lab Results 03/18/21 Range/Units 16:01 POC Glucose 93 (70-110) mg/dL Discharge Plan Discharge Patient Disposition: Home Clinical Impression: Laceration of toe Qualifiers: Encounter type: initial encounter Toe: great toe Damage to nail status: without damage Foreign body presence: without foreign body Laterality: left Qualified Code(s): S91.112A - Laceration without foreign body of left great toe without damage to nail, initial encounter Condition: Stable Prescriptions: New cephalexin 500 mg capsule 500 mg PO Q6H 7 Days Qty: 28 RF: 0 No Action tamsulosin [Flomax] 0.4 mg Capsule 0.4 mg PO DAILY RF: 0 buprenorphine-naloxone [Suboxone] 8-2 mg Film 3 film SUBLINGUAL DAILY RF: 0 fluoxetine 20 mg Capsule 20 mg PO DAILY 30 Days Qty: 30 RF: 1 ropinirole 1 mg Tablet 1 mg PO BEDTIME 30 Days Qty: 30 RF: 0 clindamycin HCl 300 mg Capsule 300 mg PO TID 30 Days Qty: 0 RF: 0 Flomax 0.4 mg capsule 0.4 mg PO BEDTIME 30 Days Qty: 30 RF: 0 docusate sodium 100 mg Capsule 100 mg PO DAILY PRN (Reason: Constipation) 30 Days Qty: 30 RF: 0 Humalog KwikPen Insulin 100 unit/mL Insulin Pen 7 unit SUBCUT TID PRN (Reason: high blood sugar) 30 Days Qty: 630 RF: 0 Levemir FlexTouch U-100 Insuln 100 unit/mL (3 mL) Insulin Pen 22 unit SUBCUT BID 30 Days Qty: 1320 RF: 0 omeprazole 20 mg Tablet,Delayed Release (Dr/Ec) 20 mg PO DAILY PRN (Reason: Indigestion) 30 Days Qty: 30 RF: 0 Discharge Orders: Discharge ED (Routine); Ordered 03/18/21 Ordered By: Jon Neely Discharge Diet: Regular Discharge Activity: Limit activity as instructed and Use walker/crutches as instructed Patient Instructions: Laceration (ED) Activity Restrictions/Additional Instructions: Take full course of antibiotics as prescribed. Use crutches to ambulate and keep weight off left foot for the next 2 to 3 days. Keep laceration site clean and dry for the next 48 hours. Then after that you can clean and re-bandage daily. Watch for signs of infection such as redness, warmth, increased tenderness and puslike drainage. If you see the signs of infection return to the ED, urgent care or PCP for reevaluation. call your PCP to schedule a follow-up appointment for reevaluation and suture removal in about 10 days. Continue taking all home meds. Follow discharge plans as discussed. You can return to the ED if symptoms worsen. Coding Level of Care Code ED Data Entry Machine Operator for Acosta Allen Exam Comprehensive
[2021-03-18 16:28] LABS: Glucose Point of Care 93 mg/dL (70-110)
[2021-03-18 16:32] VITALS: PULSE 81; RESP 18; O2SAT 96
== END 2021-03-18 16:35 | disposition home or self-care (01) ==
PROVIDERS: Emergency Provider Physician Assistant
DX: S91.112A Laceration without foreign body of left great toe without damage to nail, initial encounter (principal); Z79.4 Long term (current) use of insulin; W22.8XXA Striking against or struck by other objects, initial encounter; Y93.68 Activity, volleyball (beach) (court); F17.210 Nicotine dependence, cigarettes, uncomplicated
CPT/HCPCS: 12001; 36416; 82962; 99283; A6446; E0114

== ENCOUNTER 2021-05-12 09:12 | Emergency (ER) | payer MEDICAID, SELFPAY ==
[2021-05-12] VITALS (7 sets, daily range): BP systolic 123–139; BP diastolic 86–98; PULSE 80–100; RESP 14–18; TEMP 36.8; O2SAT 96–99; BMI 29.5
--- NOTE | 2021-05-12 09:37 | ECG_ITS ---
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 Measurements Intervals [place] Rate: 80 P: 55 DC: 131 QRS: 70 QRSD: 89 T: 48 QT: 364 QTc: 422 Interpretive Statements SINUS RHYTHM Compared to ECG 09/24/2019 14:45:11 Short DC interval no longer present Electronically Signed On 05-12-2021 13:06:09 CDT by Joana Palm M.D. [id number]
--- NOTE | 2021-05-12 09:37 | XR_ITS ---
WS: [id number] Exam: XR chest 1V portable [id number] Date/Time of Exam: 05/12/2021 9:37 AM Reason For Exam: cp and sob Findings: The lungs are clear and fully expanded. Costophrenic angles are sharp. No infiltrates. Bronchovascula r relief appears normal. Cardiac silhouette is unremarkable. Bony elements are intact. XR/XR chest 1V portable [id number] IMPRESSION: Unremarkable chest radiograph.
--- NOTE | 2021-05-12 09:39 | ED_ITS ---
HPI - Chest Pain General: Chief Complaint: Chest Pain Stated Complaint: CP SOB Time Seen by Provider: 05/12/21 09:30 History of Present Illness: HPI narrative: Patient is a 35-year-old male comes to the ED with chest pain and shortness of breath. Patient has a past medical history of type 1 diabetes and is currently at [facility] for opioid abuse treatment. Patient is a tobacco smoker. Chest pain started while at rest this morning. He says the pain gets worse upon exertion or when he takes a deep breath. Pain is described as sharp rated the middle of the chest. He rates the pain currently a 6 out of 10. He also endorses having some mild shortness of breath as well. For the past several days he is also been having some bilateral lower extremity edema. He says it is worse on the right leg. His primary care physician just started him on furosemide and first dose was yesterday and he took a dose this morning. Denies fever, chills, cough, nausea/vomiting, abdominal pain, bladder or bowel symptoms. Associated symptoms: Reports dyspnea; Deny abdominal pain, fever(s), nausea, palpitations or vomiting Review of Systems Const: Denies: fever(s), chills or fatigue Eyes: Denies: change in vision or eye discomfort ENMT: Denies: throat pain, odynophagia, nasal discharge or nasal congestion Card: Reports: chest pain; Denies: palpitations, edema, swelling of feet/ankles, dyspnea on exertion or orthopnea Resp: Reports: dyspnea; Denies: productive cough or non-productive cough GI: Denies: abdominal pain, nausea, vomiting, diarrhea, constipation or hematochezia : Denies: flank pain, difficulty urinating, dysuria or hematuria Musc: Reports: extremity swelling (Bilateral lower extremity); Denies: neck pain or back pain Skin/Breast: Denies: rash or new lesions Neuro: Denies: headache(s), numbness in extremities or weakness in extremities PFSH ED 2 PFSH: Social History Smoking and tobacco status: current every day smoker Physical Exam Const: COMMON NORMALS: no acute distress, patient oriented x3, healthy appearing and alert GENERAL APPEARANCE: cooperative and comfortable HENMT: COMMON NORMALS: normocephalic HEAD & SCALP: normocephalic MOUTH: Normal oral and palatal mucosa present THROAT: posterior oropharynx normal and uvula midline Eye: COMMON NORMALS: Equal, round and reactive pupils present PUPIL: Yes Equal, round and reactive pupils present Neck/C-Spine: COMMON NORMALS: supple GENERAL: Yes normal visual inspection Resp: COMMON NORMALS: normal respiratory effort, No retractions and No use of accessory muscles EFFORT & INSPECTION: Yes able to speak in complete sentences, No tachypneic, No respiratory distress and No labored AUSCULTATION: wheezes inspiratory wheezes and throughout Cardio: COMMON NORMALS: regular rate, regular rhythm, S1 normal heart sound present, S2 normal heart sound present, No gallops present (Cardio), No clicks present (Cardio), No murmurs present (Cardio) and Peripheral pulses 2+ throughout RATE: regular rate RHYTHM: regular rhythm HEART SOUNDS: S1 normal heart sound present and S2 normal heart sound present PERIPHERAL PULSES: Peripheral pulses 2+ throughout GI: COMMON NORMALS: Normal to inspection, nondistended, normoactive bowel sounds present, Soft to palpation, non-tender and no masses PALPATION: Yes Soft to palpation : COMMON NORMALS: Yes no CVA tenderness BLADDER/KIDNEY EXAM: Yes no CVA tenderness Back/Pelvis: COMMON NORMALS: no CVA tenderness Extremity: GENERAL: Yes edema (Right lower extremity-1+ pitting edema, left lower extremity trace pitting ) Neuro: COMMON NORMALS: patient oriented x3 and moves all extremities SENSORIUM/ORIENTATION: Yes alert Skin: GENERAL SKIN EXAM: dry skin Course Vital Signs: Vital signs: Vital Signs Temperature 98.2 F 05/12/21 09:31 Pulse Rate 84 05/12/21 12:00 Respiratory Rate 14 05/12/21 12:00 Blood Pressure 123/86 05/12/21 12:00 Pulse Oximetry 98 05/12/21 12:00 MDM - Chest Pain MDM Narrative: Medical decision making narrative: Patient is a 35-year-old male who comes to the ED with chest pain, SOB and right lower extremity leg swelling. Vitals are stable. Patient appears in no acute distress or pain. He has some scattered wheezing throughout his lungs. He also has some 1+ pitting edema on his right lower extremity. Chest x-ray showed no acute findings, CBC and CMP were unremarkable. EKG showed no acute findings. Troponins negative. D-dimer normal. Ultrasound venous duplex of right lower extremity showed no DVTs or blood clots. Patient was given DuoNeb breathing treatment and his symptoms improved. Patient was diagnosed with noncardiac chest pain and wheezing. Patient discharged home with told to follow-up with his PCP in 7 to 10 days for reevaluation. Return ED precautions given. Patient understood agree with plan. Lab Data: Attestation: I reviewed the patient's lab results. Labs: Lab Results 05/12/21 05/12/21 05/12/21 Range/Units 08:53 08:53 08:53 WBC 6.4 (4.0-10.0) 10^3/ uL RBC 5.38 H (4.1-5.3) 10^6/u L Hgb 14.7 (11.7-16.6) g/dL Hct 43.5 (42.0-52.0) % MCV 80.9 (80-94) fl MCH 27.3 L (28.0-34.0) pg MCHC 33.8 (30.0-36.0) g/dL RDW 12.5 (12.1-15.1) % Plt Count 247 (130-400) 10^3/c mm MPV 11.0 H (7.4-10.4) fL Neut % (Auto) 57.2 % Lymph % (Auto) 27.0 % [place] % (Auto) 10.9 % Eos % (Auto) 3.4 % Baso % (Auto) 0.9 % Neut # (Auto) 3.68 (1.8-7.7) 10^3/u L Lymph # (Auto) 1.7 (0.8-4.8) 10^3/u L [place] # (Auto) 0.7 (0.2-0.9) 10^3/u L Eos # (Auto) 0.2 (0.0-0.8) 10^3/u L Baso # (Auto) 0.1 (0.0-0.1) 10^3/u L Nucleated RBC % (a uto) 0 % Nucleated RBCs # 0.0 /100WBC D-Dimer (0-0.59) ug/mIFE U Sodium 136 (136-145) mmol/L Potassium 4.9 (3.5-5.1) mmol/L Chloride 99 (98-107) mmol/L Carbon Dioxide 29 (22-29) mmol/L Anion Gap 12.9 (5-19) BUN 21 H (6-20) mg/dL Creatinine 0.7 (0.7-1.2) mg/dL GFR Calculation 126.9 (90-130) mL/min Glucose 213 H (65-115) mg/dL POC Glucose (70-110) mg/dL Calculated Osmolal ity 291 (285-295) mOsm/k g Calcium 9.4 (8.5-10.5) mg/dL Total Bilirubin 0.2 (0.15-1.2) mg/dL AST 54 H (0-40) U/L ALT 65 H (0-41) U/L Alkaline Phosphata se 75 (40-130) IU/L Troponin T Baselin e 12 (0-15) ng/L Troponin T 120 [place] (0-15) ng/L Delta Troponin T (0-10) ABS# Total Protein 6.3 L (6.6-8.7) g/dL Albumin 4.2 (3.5-5.2) g/dL Globulin 2.1 (1.3-4.6) g/dL 05/12/21 05/12/21 05/12/21 Range/Units 08:53 11:59 12:00 WBC (4.0-10.0) 10^3/ uL RBC (4.1-5.3) 10^6/u L Hgb (11.7-16.6) g/dL Hct (42.0-52.0) % MCV (80-94) fl MCH (28.0-34.0) pg MCHC (30.0-36.0) g/dL RDW (12.1-15.1) % Plt Count (130-400) 10^3/c mm MPV (7.4-10.4) fL Neut % (Auto) % Lymph % (Auto) % [place] % (Auto) % Eos % (Auto) % Baso % (Auto) % Neut # (Auto) (1.8-7.7) 10^3/u L Lymph # (Auto) (0.8-4.8) 10^3/u L [place] # (Auto) (0.2-0.9) 10^3/u L Eos # (Auto) (0.0-0.8) 10^3/u L Baso # (Auto) (0.0-0.1) 10^3/u L Nucleated RBC % (a uto) % Nucleated RBCs # /100WBC D-Dimer 0.32 (0-0.59) ug/mIFE U Sodium (136-145) mmol/L Potassium (3.5-5.1) mmol/L Chloride (98-107) mmol/L Carbon Dioxide (22-29) mmol/L Anion Gap (5-19) BUN (6-20) mg/dL Creatinine (0.7-1.2) mg/dL GFR Calculation (90-130) mL/min Glucose (65-115) mg/dL POC Glucose 184 H (70-110) mg/dL Calculated Osmolal ity (285-295) mOsm/k g Calcium (8.5-10.5) mg/dL Total Bilirubin (0.15-1.2) mg/dL AST (0-40) U/L ALT (0-41) U/L Alkaline Phosphata se (40-130) IU/L Troponin T Baselin e (0-15) ng/L Troponin T 120 [place] 10.30 (0-15) ng/L Delta Troponin T -1.70 L (0-10) ABS# Total Protein (6.6-8.7) g/dL Albumin (3.5-5.2) g/dL Globulin (1.3-4.6) g/dL Imaging Data^: CXR: Attestation: I personally reviewed and interpreted this imaging study as follows: Radiologist's impression: [address] [address] XRay Report Signed Patient: Arash Pettit Unit #: [id number] : 1985 Age/Sex: 35 / M ADM Date: 05/12/21 Loc: ER Room/Bed: Attending Dr: Ordering Provider/Ordering MD: Jon Neely Date of Service: 05/12/21 Procedure(s): XR chest 1V portable [id number] Accession Number(s): [id number] Report Number: [id number] WS: [id number] Exam: XR chest 1V portable [id number] Date/Time of Exam: 05/12/2021 9:37 AM Reason For Exam: cp and sob Findings: The lungs are clear and fully expanded. Costophrenic angles are sharp. No infiltrates. Bronchovascular relief appears normal. Cardiac silhouette is unremarkable. Bony elements are intact. XR/XR chest 1V portable [id number] IMPRESSION: Unremarkable chest radiograph. Dictated By: Néstor Ledezma DO Signed By: Néstor Ledezma DO Signed Date/Time: 05/12/21956 DD/ 6 Vascular: Attestation: I personally reviewed and interpreted this imaging study as follows: Radiologist's impression: Pedro Luis Adhikari[address] [place] [address] [place] [address]Ultrasound ReportSigned Patient: Arash PettitUnit #: [id number]: 1985Acct#:[id number]/Sex: 35 / MADM Date: 05/12/21Loc: ERRoom/Bed:Attending Dr: Ordering Provider/Ordering MD: Jon Neely Date of Service: 05/12/21 Procedure(s): [place] [id number] Accession Number(s): [id number] Report Number: [id number] Arash Pettit Age: 35 Gender: M : 1985 Exam Date: 05/12/2021 10:04 Ordering Phys: Jon Neely Technologist: Rubi Weller Exam Location: [facility] [place] Indication: SOB, CHEST PAIN, RLE SWELLING HISTORY: Lower extremity swelling. PROCEDURES: Venous duplex imaging was performed in only the right lower extremity. The following venous structures were evaluated: common femoral vein, profunda vein, proximal portion of the greater saphenous vein, superficial femoral vein, and the popliteal vein. In addition, the posterior tibial and peroneal trunk were evaluated. Serial compression, augmentation maneuvers, and spectral Doppler flow evaluation were performed. FINDINGS: Normal 2-D Doppler and augmentation and compressibility throughout the lower extremity venous structures. Additional imaging through the proximal calf veins also reveals no thrombus. Limited evaluation of the greater saphenous vein is patent with no thrombus. CONCLUSIONS No DVT right lower extremity. Dr. Jenna Ibarra DO (Electronically Signed) Final Date: 12 May 2021 10:22 S EKG Data^: EKG 1: Attestation: I personally reviewed and interpreted this EKG as follows: EKG interpretation date: 05/12/21 Interpretation: Normal sinus rhythm, 80 bpm, no ST segment elevation or depression seen. Discharge Plan Discharge Patient Disposition: Home Clinical Impression: Chest pain, non-cardiac, Wheezing on auscultation Condition: Stable Prescriptions: New albuterol sulfate 90 mcg/actuation HFA aerosol inhaler 2 inh inhalation Q6H PRN (Reason: shortness of breath or wheezing) Qty: 8.5 RF: 0 No Action fluoxetine 40 mg Capsule 40 mg PO DAILY@06 RF: 0 Seroquel 100 mg Tablet 150 mg PO DAILY@21 RF: 0 Tylenol Extra Strength 500 mg Tablet 1,000 mg PO Q4H PRN (Reason: Pain) RF: 0 tamsulosin 0.4 mg Capsule 0.4 mg PO DAILY@06 RF: 0 Colace 100 mg Capsule 100 mg PO BID@06,21 RF: 0 Lasix 20 mg Tablet 20 mg PO DAILY@06 RF: 0 hydroxychloroquine 200 mg Tablet 200 mg PO DAILY@06 RF: 0 Novolog Flexpen U-100 Insulin 100 unit/mL (3 mL) Insulin Pen See Rx Instructions .ROUTE .COMPLEX RF: 0 Levemir Flexpen 100 unit/mL (3 mL) Insulin Pen See Rx Instructions .ROUTE .COMPLEX RF: 0 Suboxone 8-2 mg Film 1 film buccal TID@06,12,17 RF: 0 Orajel See Rx Instructions .ROUTE .COMPLEX RF: 0 Discharge Orders: Discharge ED (Routine); Ordered 05/12/21 Ordered By: Jon Neely Referrals: Kim Lewis MD [Primary Care Provider] - Discharge Diet: Regular Discharge Activity: Resume usual activity Patient Instructions: Noncardiac Chest Pain (ED) Activity Restrictions/Additional Instructions: Follow-up with medical provider as directed in 7 to 10 days reevaluation. Take medications as prescribed. Return to the ER or your medical provider if condition worsens. Please read and understand discharge instructions. Thank you for choosing [facility] for your healthcare needs today. Please realize this is an emergency room and that we are providing you with a medical screening exam and this may not be complete and all inclusive of all the testing and or work up that you may need to determine your ailment or severity of your illness. It is very important that you follow up as instructed or that you return to the Emergency Department should you have concerns or if your condition changes or worsens in any way. Coding Level of Care Code ED Pediatrics Hospitalist for Chg Fwd Exam Comprehensive
--- NOTE | 2021-05-12 09:49 | USCV_ITS ---
Arash Pettit Age: 35 Gender: M : 1985 Exam Date: 05/12/2021 10:04 Ordering Phys: Jon Neely Technologist: Rubi Weller [place] [facility] [place]ication: SOB, CHEST PAIN, RLE SWELLING HISTORY: Lower extremity swelling. PROCEDURES: Venous duplex imaging was performed in only the right lower extremity. The following venous structures were evaluated: common femoral vein, profunda vein, proximal portion of the greater saphenous vein, superficial femoral vein, and the popliteal vein. In addition, the posterior tibial and peroneal trunk were evaluated. Serial compression, augmentation maneuvers, and spectral Doppler flow evaluation were performed. FINDINGS: Normal 2-D Doppler and augmentation and compressibility throughout the lower extremity venous structures. Additional imaging through the proximal calf veins also reveals no thrombus. Limited evaluation of the greater saphenous vein is patent with no thrombus. CONCLUSIONS No DVT right lower extremity. Dr. Jenna Ibarra DO (Electronically Signed) Final Date: 12 May 2021 10:22 S
[2021-05-12 10:06] LABS: Basophils # 0.1 10^3/uL (0.0-0.1); Basophils % 0.9 %; Eosinophils # 0.2 10^3/uL (0.0-0.8); Eosinophils % 3.4 %; Hematocrit 43.5 % (42.0-52.0); Hemoglobin 14.7 g/dL (11.7-16.6); Lymphocytes # 1.7 10^3/uL (0.8-4.8); Mean Corpuscular HGB Conc 33.8 g/dL (30.0-36.0); Mean Corpuscular Hemoglobin 27.3 pg (28.0-34.0); Mean Corpuscular Volume 80.9 fl (80-94); Monocytes # 0.7 10^3/uL (0.2-0.9); Monocytes % 10.9 %; Neutrophils # 3.68 10^3/uL (1.8-7.7); Neutrophils % 57.2 %; Nucleated Red Blood Cells % 0 %; Platelet Count 247 10^3/cmm (130-400); Red Blood Count 5.38 10^6/uL (4.1-5.3); Red Cell Distribution Width 12.5 % (12.1-15.1); White Blood Count 6.4 10^3/uL (4.0-10.0)
[2021-05-12] MEDS: ipratropium-albuterol 3 mL Neb 6 ML INHALATION (10:11)
[2021-05-12 10:19] LABS: D Dimer 0.32 ug/mIFEU (0-0.59)
[2021-05-12] MEDS: aspirin 81 mg Chew Tablet 324 MG PO (10:21)
[2021-05-12 10:24] LABS: Alanine Aminotransferase 65 U/L (0-41); Albumin Level 4.2 g/dL (3.5-5.2); Alkaline Phosphatase 75 IU/L (40-130); Anion Gap 12.9 (5-19); Aspartate Amino Transferase 54 U/L (0-40); Blood Urea Nitrogen 21 mg/dL (6-20); Calcium 9.4 mg/dL (8.5-10.5); Carbon Dioxide 29 mmol/L (22-29); Chloride 99 mmol/L (98-107); Globulin 2.1 g/dL (1.3-4.6); Glomerular Filtration Rate 126.9 mL/min (90-130); Glucose 213 mg/dL (65-115); Osmolality Calculated 291 mOsm/kg (285-295); Potassium 4.9 mmol/L (3.5-5.1); Sodium 136 mmol/L (136-145); Total Bilirubin 0.2 mg/dL (0.15-1.2); Total Protein 6.3 g/dL (6.6-8.7)
[2021-05-12 10:29] LABS: Troponin(5th) Baseline 12 ng/L (0-15)
--- NOTE | 2021-05-12 11:37 | ECG_ITS ---
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 Measurements Intervals [place] Rate: 76 P: 49 ND: 129 QRS: 43 QRSD: 94 T: 46 QT: 366 QTc: 413 Interpretive Statements SINUS RHYTHM Compared to ECG 05/12/2021 09:44:34 No significant changes Electronically Signed On 05-12-2021 18:03:45 CDT by Yaw Gilliam M.D. [id number]
[2021-05-12 12:09] LABS: Glucose Point of Care 184 mg/dL (70-110)
== END 2021-05-12 12:56 | disposition home or self-care (01) ==
PROVIDERS: Emergency Provider Physician Assistant; PCP Family Medicine
DX: R07.89 Other chest pain (principal); R06.2 Wheezing; F17.200 Nicotine dependence, unspecified, uncomplicated
CPT/HCPCS: 36416; 71045; 80053; 82962; 84484; 85025; 85378; 93005; 93971; 94640; 99284

== ENCOUNTER 2024-11-02 09:02 | Outpatient (CLI) | payer MEDICAID, SELFPAY ==
--- NOTE | 2024-11-02 09:10 | US_ITS ---
WS: [id number] Exam: US scrotum [id number] Date/Time of Exam: 11/02/2024 9:10 AM Reason For Exam: PAIN There is hyperemia of the LEFT testicle and LEFT epididymis suggesting LEFT orchitis and epididymitis. The RIGHT testicle and epididymis were unremarkable. No indication of testicular mass or nodule. No findings to suggest testicular torsion. The RIGHT testicle measures 3.6 x 2.5 x 2.7 cm. The LEFT testicle measures 4.8 x 2.6 x 2.7 cm. No sign of hydrocele. No scrotal wall abnormality is noted. US/US scrotum [id number] IMPRESSION: 1. Hyperemia of the LEFT testicle and LEFT epididymis suggesting epididymoorchi tis. 2. The RIGHT testicle and epididymis were unremarkable. 3. No testicular mass, torsion or other significant finding.
== END 2024-11-02 09:03 | disposition home or self-care (01) ==
PROVIDERS: PCP Family Medicine; Visit Provider Nurse Practitioner Family
DX: N50.89 Other specified disorders of the male genital organs (principal); R93.89 Abnormal findings on diagnostic imaging of other specified body structures
CPT/HCPCS: 76870